=== PATIENT | male | born 1945 | race Caucasian/White ===

== ENCOUNTER 2016-07-06 16:29 | Emergency (ER) | payer MEDICARE, OTHER ==
[~2016-07-06] VITALS: Ht 177.8 cm; Wt 87.6 kg
[~2016-07-06 16:29] MED LIST: ASPI-496 PO; ASPI-621 PO; CEFTRIAXONE PMX IVPB; Cellcept IVPB; ENOX40SY4 SQ; HYDR2TAB13 PO; HYDR2VIA2 IV; METO25TA35 PO; MYCO250C PO; ONDA4TAB7 PO; ONDA4VIA4 IVP; PANT40TA3 PO; PANT40VI IVPush; TACR0.5C4 NG; TACR0.5C4 PO
[2016-07-06] MEDS ORDERED: SODIUM CHLORIDE 0.9% 1,000 ML IV ONE (16:58)
[2016-07-06] MEDS ORDERED: SODIUM CHLORIDE FLUSH 10ML SYR IVF ONE (17:00)
[2016-07-06 17:50] LABS: BLOOD UREA NITROGEN 16 mg/dL (7-18)
[2016-07-06 17:53] LABS: ASPARTATE AMINO TRANSFERASE 41 U/L (15-37)
[2016-07-06] MEDS ORDERED: OMNIPAQUE 350 MG/ML, 100ML BOTTLE ONE (20:15)
[2016-07-06 20:32] LABS: PATH.CAST-FLAG NOT PRESENT; SPERM-FLAG NOT PRESENT; SRC-FLAG NOT PRESENT; XTAL-FLAG NOT PRESENT; YLC-FLAG NOT PRESENT
[2016-07-06 21:33] VITALS: BP 142/77
== END 2016-07-06 21:35 | disposition home or self-care (01) ==
LOC: ED 21:22
DX: R10.84 Generalized abdominal pain (principal); I10 Essential (primary) hypertension; J45.909 Unspecified asthma, uncomplicated
CPT/HCPCS: 36415; 74022; 74177; 76700; 80053; 81001; 83690; 85025; 87086; 96360; 99285; J7030; Q9967

== ENCOUNTER 2017-01-22 12:32 | Inpatient (IN) | payer MEDICARE, OTHER ==
[~2017-01-22] VITALS: Ht 177.8 cm; Wt 82.6 kg
[~2017-01-22 12:32] MED LIST changes: -HYDR2TAB13 PO; +HYDR2TAB29 PO
[2017-01-22 13:34] LABS: HEMATOCRIT 35.6 % (39.2-51.8); HEMOGLOBIN 12.1 g/dL (13.7-18.0); WHITE BLOOD COUNT 4.3 x10^3/uL (3.4-10)
[2017-01-22 13:47] LABS: BLOOD UREA NITROGEN 24 mg/dL (7-18)
[2017-01-22 13:53] LABS: ASPARTATE AMINO TRANSFERASE 46 U/L (15-37)
[2017-01-22] MEDS ORDERED: hydrALAzine 20 MG/ML, 1ML IVPush PRN (17:30)
[2017-01-22] MEDS ORDERED: OXYcodone IR 5MG TABLET PO PRN (17:30)
[2017-01-22] MEDS ORDERED: ONDANSETRON 2MG/ML, 2ML IVPush PRN (17:30)
[2017-01-22] MEDS ORDERED: morphine SULFATE 10 MG/ML, 1ML IVPush PRN (17:30)
[2017-01-22] MEDS: METOPROLOL TARTRATE 25 MG TABLET PO SCH ×2 (18:00→22:33)
[2017-01-22] MEDS ORDERED: HEPARIN 5,000 UNITS/ML, 1ML ONE (20:14)
[2017-01-22] MEDS: TACROLIMUS 0.5 MG CAPSULE PO SCH (21:00)
[2017-01-22 21:55] VITALS: BP 151/82
[2017-01-22] MEDS: HEPARIN 5,000 UNITS/ML, 1ML SQ SCH (22:29)
[2017-01-23 02:00] VITALS: BP 120/70
[2017-01-23 05:31] LABS: HEMATOCRIT 30.8 % (39.2-51.8); HEMOGLOBIN 10.5 g/dL (13.7-18.0); WHITE BLOOD COUNT 3.2 x10^3/uL (3.4-10)
[2017-01-23 05:53] LABS: ASPARTATE AMINO TRANSFERASE 36 U/L (15-37); BLOOD UREA NITROGEN 25 mg/dL (7-18)
[2017-01-23] MEDS: METOPROLOL TARTRATE 25 MG TABLET PO SCH ×2 (06:13→17:36)
[2017-01-23] MEDS: HEPARIN 5,000 UNITS/ML, 1ML SQ SCH ×3 (06:14→20:56)
[2017-01-23] MEDS ORDERED: FUROSEMIDE 40 MG/4 ML IV ONE (07:00)
[2017-01-23 09:00] VITALS: BP 132/85
[2017-01-23] MEDS: PANTOPROZOLE 40MG TABLET PO SCH (09:18)
[2017-01-23] MEDS: TACROLIMUS 0.5 MG CAPSULE PO SCH ×2 (09:19→20:56)
[2017-01-23] MEDS: TACROLIMUS 1 MG CAPSULE PO SCH (09:21)
[2017-01-23 13:23] VITALS: BP 127/81
[2017-01-23] MEDS ORDERED: AMLO5TAB4 PO (15:39)
[2017-01-23] MEDS ORDERED: ASPI-515 PO (15:41)
[2017-01-23 19:56] VITALS: BP 123/65
[2017-01-24 01:56] VITALS: BP 135/78
[2017-01-24] MEDS: HEPARIN 5,000 UNITS/ML, 1ML SQ SCH ×3 (05:39→21:12)
[2017-01-24] MEDS: METOPROLOL TARTRATE 25 MG TABLET PO SCH ×2 (05:39→17:22)
[2017-01-24 07:00] VITALS: BP 139/79
[2017-01-24 07:34] LABS: HEMATOCRIT 32.6 % (39.2-51.8); WHITE BLOOD COUNT 3.1 x10^3/uL (3.4-10)
[2017-01-24 07:46] LABS: ASPARTATE AMINO TRANSFERASE 36 U/L (15-37); BLOOD UREA NITROGEN 25 mg/dL (7-18)
[2017-01-24] MEDS: TACROLIMUS 1 MG CAPSULE PO SCH (08:33)
[2017-01-24] MEDS: PANTOPROZOLE 40MG TABLET PO SCH (08:33)
[2017-01-24] MEDS: FUROSEMIDE 40 MG/4 ML IV SCH ×2 (12:02→21:12)
[2017-01-24] MEDS: POTASSIUM CHLORIDE 20 MEQ PACKET PO SCH ×3 (12:02→21:11)
[2017-01-24 12:45] VITALS: BP 133/82
[2017-01-24 20:50] VITALS: BP 130/86
[2017-01-24] MEDS: TACROLIMUS 0.5 MG CAPSULE PO SCH (21:12)
[2017-01-25 02:30] VITALS: BP 131/80
[2017-01-25 05:01] LABS: BLOOD UREA NITROGEN 26 mg/dL (7-18)
[2017-01-25] MEDS: HEPARIN 5,000 UNITS/ML, 1ML SQ SCH ×3 (05:39→21:33)
[2017-01-25] MEDS: METOPROLOL TARTRATE 25 MG TABLET PO SCH ×2 (05:39→17:05)
[2017-01-25 06:56] VITALS: BP 142/86
[2017-01-25] MEDS: POTASSIUM CHLORIDE 20 MEQ PACKET PO SCH ×3 (08:32→21:33)
[2017-01-25] MEDS: FUROSEMIDE 40 MG/4 ML IV SCH ×2 (08:32→21:33)
[2017-01-25] MEDS: POLYETHYLENE GLYCOL 17 GM PACKET PO SCH (08:32)
[2017-01-25] MEDS: TACROLIMUS 1 MG CAPSULE PO SCH (08:32)
[2017-01-25] MEDS: PANTOPROZOLE 40MG TABLET PO SCH (08:32)
[2017-01-25 09:07] LABS: CREATININE URINE 117.5 mg/dL (Not Estab.)
[2017-01-25 13:58] VITALS: BP 125/83
[2017-01-25 19:50] VITALS: BP 136/84
[2017-01-25] MEDS: TACROLIMUS 0.5 MG CAPSULE PO SCH (21:32)
[2017-01-26 02:35] VITALS: BP 124/76
[2017-01-26 05:30] LABS: HEMATOCRIT 33.4 % (39.2-51.8); HEMOGLOBIN 11.3 g/dL (13.7-18.0); WHITE BLOOD COUNT 3.8 x10^3/uL (3.4-10)
[2017-01-26 05:44] LABS: ASPARTATE AMINO TRANSFERASE 35 U/L (15-37); BLOOD UREA NITROGEN 28 mg/dL (7-18)
[2017-01-26] MEDS: HEPARIN 5,000 UNITS/ML, 1ML SQ SCH ×3 (05:52→21:18)
[2017-01-26] MEDS: METOPROLOL TARTRATE 25 MG TABLET PO SCH ×2 (05:59→16:53)
[2017-01-26 06:07] LABS: FREE KAPPA LT CHAINS SERUM 50.8 mg/L (3.3-19.4); FREE LAMBDA LT CHAINS SERUM 28.8 mg/L (5.7-26.3); KAPPA/LAMBDA RATIO SERUM 1.76 (0.26-1.65)
[2017-01-26 07:25] VITALS: BP 106/73
[2017-01-26] MEDS: POLYETHYLENE GLYCOL 17 GM PACKET PO SCH (07:40)
[2017-01-26] MEDS: TACROLIMUS 1 MG CAPSULE PO SCH (07:40)
[2017-01-26] MEDS: POTASSIUM CHLORIDE 20 MEQ PACKET PO SCH ×3 (07:40→21:18)
[2017-01-26] MEDS: PANTOPROZOLE 40MG TABLET PO SCH (07:41)
[2017-01-26] MEDS ORDERED: FLUMAZENIL 0.1 MG/1 ML, 5ML ONE (08:05)
[2017-01-26] MEDS ORDERED: NALOXONE 1 MG/ML, 2ML ONE (08:05)
[2017-01-26] MEDS ORDERED: FENTANYL PF 100 MCG/2ML ONE ×2 (08:05→09:26)
[2017-01-26] MEDS ORDERED: MIDAZOLAM 1 MG/ML, 5ML ONE (08:05)
[2017-01-26] MEDS: FUROSEMIDE 40 MG/4 ML IV SCH ×2 (08:32→21:18)
[2017-01-26 09:22] VITALS: BP 126/82
[2017-01-26 13:20] VITALS: BP 115/78
[2017-01-26 20:51] VITALS: BP 113/74
[2017-01-26] MEDS: TACROLIMUS 0.5 MG CAPSULE PO SCH (21:18)
[2017-01-27 01:13] VITALS: BP 122/80
[2017-01-27] MEDS: HEPARIN 5,000 UNITS/ML, 1ML SQ SCH ×3 (05:24→21:00)
[2017-01-27] MEDS: METOPROLOL TARTRATE 25 MG TABLET PO SCH ×2 (05:24→16:59)
[2017-01-27 05:35] LABS: HEMATOCRIT 36.7 % (39.2-51.8); HEMOGLOBIN 12.3 g/dL (13.7-18.0); WHITE BLOOD COUNT 4.2 x10^3/uL (3.4-10)
[2017-01-27 05:57] LABS: ASPARTATE AMINO TRANSFERASE 39 U/L (15-37); BLOOD UREA NITROGEN 26 mg/dL (7-18)
[2017-01-27] MEDS: FUROSEMIDE 40 MG TABLET PO SCH ×3 (07:30→16:59)
[2017-01-27 08:30] VITALS: BP 126/90
[2017-01-27] MEDS: FUROSEMIDE 40 MG/4 ML IV SCH (09:00)
[2017-01-27] MEDS: POLYETHYLENE GLYCOL 17 GM PACKET PO SCH ×2 (09:00→09:27)
[2017-01-27] MEDS: TACROLIMUS 1 MG CAPSULE PO SCH (09:00)
[2017-01-27] MEDS: TACROLIMUS 0.5 MG CAPSULE PO SCH (09:27)
[2017-01-27] MEDS: PANTOPROZOLE 40MG TABLET PO SCH (09:27)
[2017-01-27] MEDS: POTASSIUM CHLORIDE 20 MEQ PACKET PO SCH ×3 (09:27→22:29)
[2017-01-27 14:30] VITALS: BP 128/84
[2017-01-27 20:00] VITALS: BP 118/83
[2017-01-28 02:20] VITALS: BP 128/64
[2017-01-28] MEDS: HEPARIN 5,000 UNITS/ML, 1ML SQ SCH ×2 (06:08→13:00)
[2017-01-28] MEDS: METOPROLOL TARTRATE 25 MG TABLET PO SCH (06:08)
[2017-01-28 06:21] LABS: BLOOD UREA NITROGEN 30 mg/dL (7-18)
[2017-01-28] MEDS: POTASSIUM CHLORIDE 20 MEQ PACKET PO SCH (08:56)
[2017-01-28] MEDS: TACROLIMUS 1 MG CAPSULE PO SCH (08:56)
[2017-01-28] MEDS: PANTOPROZOLE 40MG TABLET PO SCH (08:56)
[2017-01-28] MEDS: FUROSEMIDE 40 MG TABLET PO SCH (08:56)
[2017-01-28] MEDS: POLYETHYLENE GLYCOL 17 GM PACKET PO SCH (08:57)
[2017-01-28 10:00] VITALS: BP 123/81
[2017-01-28] MEDS ORDERED: TACR0.5C4 PO (14:35)
[2017-01-28] MEDS ORDERED: FURO40TA6 PO (14:35)
[2017-01-28] MEDS ORDERED: METO25TA35 PO (14:35)
[2017-01-28] MEDS ORDERED: MYCO500T3 PO (14:35)
[2017-01-28] MEDS ORDERED: POTA20PA25 PO (14:35)
[2017-01-28] MEDS ORDERED: TACR1CAP4 PO (14:35)
== END 2017-01-28 17:00 | disposition home or self-care (01) | DRG 682 ==
LOC: ED 16:46 → SUATTDRO 17:00 → EDIP 17:15 → 4EST 20:48
PROVIDERS: ADMIT Internal Medicine; ATTEND Internal Medicine
PROC: 0TB13ZX Excision of Left Kidney, Percutaneous Approach, Diagnostic (ICD-10-PCS; principal; 2017-01-26)
DX: N17.0 Acute kidney failure with tubular necrosis (principal); E43 Unspecified severe protein-calorie malnutrition; I50.31 Acute diastolic (congestive) heart failure; Z94.4 Liver transplant status; I13.0 Hypertensive heart and chronic kidney disease with heart failure and stage 1 through stage 4 chronic kidney disease, or unspecified chronic kidney disease; Z94.0 Kidney transplant status; B18.2 Chronic viral hepatitis C; D64.9 Anemia, unspecified; I08.1 Rheumatic disorders of both mitral and tricuspid valves; I77.819 Aortic ectasia, unspecified site; K59.00 Constipation, unspecified; N18.9 Chronic kidney disease, unspecified; J45.909 Unspecified asthma, uncomplicated; Z79.899 Other long term (current) drug therapy; Z87.891 Personal history of nicotine dependence; Z68.26 Body mass index [BMI] 26.0-26.9, adult; Z88.2 Allergy status to sulfonamides
CPT/HCPCS: 36415; 50200; 71010; 71250; 76776; 77012; 80048; 80053; 80197; 81001; 82043; 82306; 82570; 82784; 83036; 83690; 83735; 83880; 83883; 84100; 84155; 84156; 84165; 84550; 85025; 85610; 86334; 88300; 93005; 93306; 99156; 99157; 99285; J1644; J1940; J2250; J3010; J7507; J2310; J7517

== ENCOUNTER → 2017-03-26 | Outpatient (CLI) | payer MEDICARE ==
[~2017-03-26] MED LIST changes: +AMLO5TAB4 PO; +ASPI-515 PO; +FURO40TA6 PO; +MYCO500T3 PO; +POTA20PA25 PO; +REGADENOSON 0.4 MG/5 ML SYRINGE ONE; +TACR1CAP4 PO
== END | disposition home or self-care (01) ==
LOC: RAD 08:35
PROVIDERS: ATTEND Internal Medicine Cardiovascular Disease
DX: I10 Essential (primary) hypertension (principal); R00.0 Tachycardia, unspecified; I48.92 Unspecified atrial flutter
CPT/HCPCS: 78452; 93017; A9502; J2785

== ENCOUNTER → 2017-07-03 | Outpatient (CLI) | payer MEDICARE ==
[~2017-07-03] MED LIST changes: -REGADENOSON 0.4 MG/5 ML SYRINGE ONE
== END | disposition home or self-care (01) ==
LOC: CFH 08:55
PROVIDERS: ATTEND Family Medicine
DX: R16.1 Splenomegaly, not elsewhere classified (principal); Z94.4 Liver transplant status; Z90.49 Acquired absence of other specified parts of digestive tract
CPT/HCPCS: 76700

== ENCOUNTER 2018-03-01 11:35 | Observation (INO) | payer MEDICARE ==
[~2018-03-01] VITALS: Ht 177.8 cm; Wt 78.8 kg
[~2018-03-01 11:35] MED LIST changes: -ASPI-621 PO; +ASPI81TA45 PO; -ONDA4VIA4 IVP; +ONDA4VIA8 IVP
--- NOTE | 2018-03-01 11:55 | NUR ---
FIRST CONTACT WITH PATIENT, REPORTS NAUSEA AND BLOOD IN STOOL LAST WED AND TODAY. LAB AT BEDSIDE, SKIN PALE, WARM, DRY, NADN, DENIES ABD PAIN. CALL LIGHT WITHIN REACH, FAMILY AT BEDSIDE.
[2018-03-01] MEDS ORDERED: SODIUM CHLORIDE 0.9% 1,000ML IVBOLUS ONE (12:00)
[2018-03-01] MEDS ORDERED: SODIUM CHLORIDE FLUSH 10ML SYR IVF ONE (12:00)
--- NOTE | 2018-03-01 12:11 | NUR ---
FURNITURE PACKER ON PATIENT, LABS COMPLETED, IV ESTABLISHED, MEDICATIONS ADMINISTERED, NO NEEDS AT THIS TIME, MD AT BEDSIDE. AWAITING CT, NO ADDITIONAL NEEDS AT THIS TIME.
[2018-03-01] MEDS ORDERED: PANT40TA5 PO (12:20)
[2018-03-01] MEDS ORDERED: ASPI-515 PO (12:20)
[2018-03-01] MEDS ORDERED: METO25TA35 PO (12:21)
[2018-03-01] MEDS ORDERED: HYDR-3342 PO (12:22)
[2018-03-01] MEDS ORDERED: LISI2.5T PO (12:22)
[2018-03-01] MEDS ORDERED: WARF-36 PO (12:23)
[2018-03-01 12:24] LABS: MEAN CORPUSCULAR HEMOGLOBIN 27.2 pg (27.5-34.5); MEAN CORPUSCULAR HGB CONC 32.8 g/dL (33.2-36.2); MEAN CORPUSCULAR VOLUME 82.8 fL (81-97); MEAN PLATELET VOLUME 9.3 fL (7.4-10.4); PLATELET COUNT 144 x10^3/uL (130-400); RED BLOOD COUNT 3.72 x10^6/uL (4.38-5.82); RED CELL DISTRIBUTION WIDTH 22.3 % (9.4-14.8)
[2018-03-01] MEDS ORDERED: FLUT1AER IH (12:24)
[2018-03-01] MEDS ORDERED: ALBU18HF IH (12:24)
[2018-03-01 12:25] LABS: INTERNATIONAL NORMALIZED RATIO 2.28 (0.93-1.1); PROTHROMBIN TIME 23.4 Seconds (9.6-11.5)
[2018-03-01 12:26] LABS: ALBUMIN 3.2 g/dL (3.4-5.0); ANION GAP 5 mmol/L (5-15); CALCIUM 8.1 mg/dL (8.5-10.1); CHLORIDE 116 mmol/L (98-107); CREATININE 1.62 mg/dL (0.7-1.3)
[2018-03-01 12:40] LABS: <PLATELET ESTIMATE> ADEQUATE; <PLT MORPHOLOGY> NORMAL PLT MORPH; ANISOCYTOSIS 1+; BASOPHILS # (AUTO) 0.03 x10^3/uL (0-0.1); BASOPHILS % (AUTO) 1 % (0-1); EOSINOPHILS # (AUTO) 0.11 x10^3/uL (0-0.4); EOSINOPHILS % (AUTO) 3 % (1-7); LYMPHOCYTES # (AUTO) 0.67 x10^3/uL (1-3.4); LYMPHOCYTES % (AUTO) 17 % (22-44); MD MORPH REVIEW ONLY; MONOCYTES # (AUTO) 0.46 x10^3/uL (0.2-0.8); MONOCYTES % (AUTO) 12 % (2-9); NEUTROPHILS # (AUTO) 2.63 x10^3/uL (1.8-6.8); NEUTROPHILS % (AUTO) 67 % (42-75); OVALOCYTES 1+
[2018-03-01 12:41] LABS: MICROCYTOSIS 1+
--- NOTE | 2018-03-01 12:49 | NUR ---
PATIENT TO CT VIA [id number].
[2018-03-01] MEDS ORDERED: OMNIPAQUE 350 MG/ML, 100ML BOTTLE ONE (13:12)
--- NOTE | 2018-03-01 13:59 | NUR ---
PATIENT AMB TO BATHROOM WITH STEADY GAIT, PATIENT BACK TO BED, NADN. AWAITING BLOOD BANK TO CALL REGARDING [facility] TO BE READY.
--- NOTE | 2018-03-01 14:04 | NUR ---
[facility] READY PER BLOOD BANK, BLOOD CONSENT FORM SIGNED AND IN CHART, PURPLE SLIP SENT TO LAB.
[2018-03-01 14:16] VITALS: BP 143/108
--- NOTE | 2018-03-01 14:21 | NUR ---
[facility] STARTED, PATIENT EDUCATED REGARDING ALLERGIC REACTIONS. NADN AT THIS TIME.
[2018-03-01 14:35] VITALS: BP 152/111
--- NOTE | 2018-03-01 14:53 | NUR ---
REPORT TO YEYO WU.
--- NOTE | 2018-03-01 14:58 | NUR ---
[facility] COMPLETED, NO REACTION. PATIENT A+OX4. AWAITING TRANSPORT TO ROOM 441 UPSTAIRS.
[2018-03-01 14:59] VITALS: BP 147/110
[2018-03-01] MEDS ORDERED: TEMPLATE NON-FORMULARY MED. (Albuterol Sulfate (Ventolin Hfa) 0 PUFF(S)) IH PRN (15:00)
--- NOTE | 2018-03-01 15:01 | NUR ---
[facility] AT BEDSIDE.
--- NOTE | 2018-03-01 15:26 | NUR ---
PATIENT ADMITTED TO HOSPITAL BED UPSTAIRS.
[2018-03-01] MEDS ORDERED: POLYETHYLENE GLYCOL 17 GM PACKET PO PRN (15:30)
[2018-03-01] MEDS ORDERED: ONDANSETRON 2MG/ML, 2ML IVPush PRN (15:30)
[2018-03-01] MEDS ORDERED: ONDANSETRON ODT 4 MG PO PRN (15:30)
[2018-03-01] MEDS ORDERED: DOCUSATE 100 MG CAPSULE PO PRN (15:30)
[2018-03-01 15:40] VITALS: BP 130/81
[2018-03-01 20:11] VITALS: BP 152/90
[2018-03-01] MEDS: TACROLIMUS 0.5 MG CAPSULE PO SCH (20:19)
[2018-03-01] MEDS: METOPROLOL TARTRATE 25 MG TABLET PO SCH (20:19)
[2018-03-02 02:14] VITALS: BP 139/87
[2018-03-02 05:46] LABS: MEAN CORPUSCULAR HEMOGLOBIN 26.4 pg (27.5-34.5); MEAN CORPUSCULAR HGB CONC 32.1 g/dL (33.2-36.2); MEAN CORPUSCULAR VOLUME 82.1 fL (81-97); MEAN PLATELET VOLUME 9.2 fL (7.4-10.4); PLATELET COUNT 110 x10^3/uL (130-400); RED BLOOD COUNT 3.23 x10^6/uL (4.38-5.82); RED CELL DISTRIBUTION WIDTH 22.6 % (9.4-14.8)
[2018-03-02 05:50] LABS: INTERNATIONAL NORMALIZED RATIO 2.14 (0.93-1.1)
[2018-03-02 05:52] LABS: ANION GAP 7 mmol/L (5-15); CALCIUM 8.2 mg/dL (8.5-10.1); CHLORIDE 118 mmol/L (98-107); CREATININE 1.35 mg/dL (0.7-1.3)
[2018-03-02 06:22] LABS: MD MORPH REVIEW ONLY
[2018-03-02 06:23] LABS: BASOPHILS # (AUTO) 0.02 x10^3/uL (0-0.1); BASOPHILS % (AUTO) 1 % (0-1); EOSINOPHILS # (AUTO) 0.11 x10^3/uL (0-0.4); EOSINOPHILS % (AUTO) 4 % (1-7); LYMPHOCYTES # (AUTO) 0.55 x10^3/uL (1-3.4); LYMPHOCYTES % (AUTO) 21 % (22-44); MONOCYTES # (AUTO) 0.35 x10^3/uL (0.2-0.8); MONOCYTES % (AUTO) 13 % (2-9); NEUTROPHILS # (AUTO) 1.64 x10^3/uL (1.8-6.8); NEUTROPHILS % (AUTO) 61 % (42-75)
[2018-03-02 06:26] LABS: ANISOCYTOSIS 2+
[2018-03-02 06:27] LABS: MICROCYTOSIS 1+; OVALOCYTES 2+
[2018-03-02 06:29] LABS: POLYCHROMASIA 1+
[2018-03-02 06:30] LABS: <PLATELET ESTIMATE> DECREASED; <PLT MORPHOLOGY> NORMAL PLT MORPH; SCHISTOCYTES 1+
[2018-03-02 07:45] VITALS: BP 156/86
[2018-03-02] MEDS: PANTOPROZOLE 40MG TABLET PO SCH (08:56)
[2018-03-02] MEDS: TACROLIMUS 1 MG CAPSULE PO SCH (08:56)
[2018-03-02] MEDS: METOPROLOL TARTRATE 25 MG TABLET PO SCH ×2 (08:56→21:21)
[2018-03-02] MEDS: LISINOPRIL 10 MG TABLET PO SCH (08:57)
[2018-03-02] MEDS: FLUTICASONE/VILANTEROL 100-25MCG/INH INH SCH (08:59)
[2018-03-02] MEDS ORDERED: IRON DEXTRAN COMPLEX IV ONE (11:00)
[2018-03-02] MEDS ORDERED: IRON DEXTRAN COMPLEX 25 MG in SODIUM CHLORIDE 0.9% 50 ML IV ONE (11:00)
[2018-03-02] MEDS ORDERED: SODIUM CHLORIDE 0.9% IV ONE (11:00)
[2018-03-02] MEDS: IRON SUCROSE COMPLEX 100MG/5ML IV SCH (12:26)
[2018-03-02 15:25] VITALS: BP 125/76
[2018-03-02 19:20] VITALS: BP 124/79
[2018-03-02 21:20] VITALS: BP 125/81
[2018-03-02] MEDS: TACROLIMUS 0.5 MG CAPSULE PO SCH (21:21)
[2018-03-03 02:30] VITALS: BP 125/85
[2018-03-03 05:41] LABS: MEAN CORPUSCULAR HEMOGLOBIN 27.2 pg (27.5-34.5); MEAN CORPUSCULAR HGB CONC 32.9 g/dL (33.2-36.2); MEAN CORPUSCULAR VOLUME 82.8 fL (81-97); MEAN PLATELET VOLUME 9.7 fL (7.4-10.4); PLATELET COUNT 103 x10^3/uL (130-400); RED BLOOD COUNT 3.27 x10^6/uL (4.38-5.82); RED CELL DISTRIBUTION WIDTH 22.6 % (9.4-14.8)
[2018-03-03 05:46] LABS: ANION GAP 8 mmol/L (5-15); CALCIUM 7.8 mg/dL (8.5-10.1); CHLORIDE 115 mmol/L (98-107)
[2018-03-03 05:47] LABS: CREATININE 1.47 mg/dL (0.7-1.3)
[2018-03-03 06:21] LABS: ANISOCYTOSIS 1+; BASOPHILS # (AUTO) 0.01 x10^3/uL (0-0.1); BASOPHILS % (AUTO) 1 % (0-1); EOSINOPHILS % (AUTO) 4 % (1-7); LYMPHOCYTES # (AUTO) 0.47 x10^3/uL (1-3.4); LYMPHOCYTES % (AUTO) 17 % (22-44); MD MORPH REVIEW ONLY; MONOCYTES # (AUTO) 0.35 x10^3/uL (0.2-0.8); MONOCYTES % (AUTO) 12 % (2-9); NEUTROPHILS # (AUTO) 1.85 x10^3/uL (1.8-6.8); NEUTROPHILS % (AUTO) 67 % (42-75)
[2018-03-03 06:22] LABS: <PLATELET ESTIMATE> DECREASED; <PLT MORPHOLOGY> NORMAL PLT MORPH; OVALOCYTES 1+; POLYCHROMASIA 1+
[2018-03-03 07:01] VITALS: BP 144/82
[2018-03-03] MEDS: PANTOPROZOLE 40MG TABLET PO SCH (08:28)
[2018-03-03] MEDS: LISINOPRIL 10 MG TABLET PO SCH (08:28)
[2018-03-03] MEDS: METOPROLOL TARTRATE 25 MG TABLET PO SCH (08:28)
[2018-03-03] MEDS: FLUTICASONE/VILANTEROL 100-25MCG/INH INH SCH (08:29)
[2018-03-03] MEDS: TACROLIMUS 1 MG CAPSULE PO SCH (08:29)
[2018-03-03] MEDS: IRON SUCROSE COMPLEX 100MG/5ML IV SCH (11:12)
== END 2018-03-03 13:17 | disposition home or self-care (01) ==
LOC: ED 12:47 → EDIP 13:41 → INTOOBSV 13:41 → 4NOR 15:30
PROVIDERS: ADMIT Hospitalist; ATTEND Hospitalist
DX: K92.1 Melena (principal); D50.0 Iron deficiency anemia secondary to blood loss (chronic); I13.0 Hypertensive heart and chronic kidney disease with heart failure and stage 1 through stage 4 chronic kidney disease, or unspecified chronic kidney disease; I48.91 Unspecified atrial fibrillation; I50.9 Heart failure, unspecified; I85.00 Esophageal varices without bleeding; J98.4 Other disorders of lung; K42.9 Umbilical hernia without obstruction or gangrene; K64.8 Other hemorrhoids; K74.60 Unspecified cirrhosis of liver; N18.3 Chronic kidney disease, stage 3 (moderate); Z79.01 Long term (current) use of anticoagulants; Z94.0 Kidney transplant status; Z94.4 Liver transplant status
CPT/HCPCS: 36415; 74174; 80048; 82040; 85014; 85018; 85025; 85610; 85730; 86850; 86900; 93005; 96374; 96376; 99284; G0378; J1756; J7030; J7507; J7517; P9017; Q9967

== ENCOUNTER 2018-06-05 21:09 | Emergency (ER) | payer MEDICARE ==
[~2018-06-05] VITALS: Ht 177.8 cm; Wt 82.2 kg
[~2018-06-05 21:09] MED LIST changes: +ALBU18HF IH; +FLUT1AER IH; +HYDR-3342 PO; +LISI2.5T PO; +ONDA4VIA60 IVP; -ONDA4VIA8 IVP; +PANT40TA5 PO; +WARF-36 PO
[2018-06-05 21:17] VITALS: BP 165/90
--- NOTE | 2018-06-05 21:29 | NUR ---
THIS IS A 73 Y/O MALE ARRIVING TO ED WITH C/O OF RASH TO VENOUS DRAW SITE FOR COUMADIN LEVEL. PTS IS CONCERNED OF POSSIBLE HEMATOMA OR INFECTION SINCE PT IS IMMUNOCOMPROMISED AT THIS TIME. PT IS LIVER AND KIDNEYS RECIPIENT. PT ON ARRIVAL CONNECTED TO ALL MONITORS AND CALL LIGHT IN REACH.
--- NOTE | 2018-06-05 21:50 | NUR ---
Patient/Caregiver given discharge instructions and they have confirmed that they understand the instructions. Patient ambulatory with steady gait.
== END 2018-06-05 21:52 | disposition home or self-care (01) ==
LOC: ED 21:46
DX: T78.40XA Allergy, unspecified, initial encounter (principal); I48.91 Unspecified atrial fibrillation; I11.0 Hypertensive heart disease with heart failure; I50.9 Heart failure, unspecified; Z86.19 Personal history of other infectious and parasitic diseases; Z94.0 Kidney transplant status; Z94.4 Liver transplant status
CPT/HCPCS: 99281

== ENCOUNTER → 2019-03-06 | Outpatient (CLI) | payer MEDICARE ==
[~2019-03-06] VITALS: Ht 177.8 cm; Wt 77.3 kg
[~2019-03-06] MED LIST changes: +ALBU18HF INH; +ASCO10004 PO; +CHOL400T10 PO; +DOCU-180 PO; +IRON PO; +URSODIOL PO
[2019-03-06 15:53] LABS: BASOPHILS # (AUTO) 0.03 x10^3/uL (0-0.1); BASOPHILS % (AUTO) 1 % (0-1); EOSINOPHILS # (AUTO) 0.27 x10^3/uL (0-0.4); EOSINOPHILS % (AUTO) 6 % (1-7); LYMPHOCYTES # (AUTO) 0.93 x10^3/uL (1-3.4); LYMPHOCYTES % (AUTO) 21 % (22-44); MD NO; MEAN CORPUSCULAR HEMOGLOBIN 29.2 pg (27.5-34.5); MEAN CORPUSCULAR HGB CONC 32.4 g/dL (33.2-36.2); MEAN CORPUSCULAR VOLUME 89.9 fL (81-97); MEAN PLATELET VOLUME 8.8 fL (7.4-10.4); MONOCYTES % (AUTO) 11 % (2-9); NEUTROPHILS # (AUTO) 2.79 x10^3/uL (1.8-6.8); NEUTROPHILS % (AUTO) 62 % (42-75); PLATELET COUNT 173 x10^3/uL (130-400); RED BLOOD COUNT 3.59 x10^6/uL (4.38-5.82)
[2019-03-06 16:03] LABS: ANION GAP 6 mmol/L (5-15); CALCIUM 8.3 mg/dL (8.5-10.1); CHLORIDE 116 mmol/L (98-107); CREATININE 1.78 mg/dL (0.7-1.3)
[2019-03-06 16:05] LABS: INTERNATIONAL NORMALIZED RATIO 2.63 (0.93-1.1); PROTHROMBIN TIME 28.1 Seconds (9.6-11.5)
== END | disposition home or self-care (01) ==
LOC: STAR 14:51
PROVIDERS: ATTEND Internal Medicine Cardiovascular Disease
DX: Z01.811 Encounter for preprocedural respiratory examination (principal); J92.9 Pleural plaque without asbestos
CPT/HCPCS: 36415; 71046; 80048; 85025; 85610; 85730

== ENCOUNTER 2019-03-10 06:23 | Day surgery (SDC) | payer MEDICARE ==
[~2019-03-10] VITALS: Ht 177.8 cm; Wt 77.3 kg
[2019-03-10] MEDS ORDERED: SODIUM CHLORIDE 0.9% 1,000 ML IV SCH (06:33)
[2019-03-10 06:47] VITALS: BP 139/92
[2019-03-10] MEDS ORDERED: MIDAZOLAM 1 MG/ML, 5ML ONE (07:44)
[2019-03-10] MEDS ORDERED: LIDOCAINE 1%, 20ML ONE (07:44)
[2019-03-10] MEDS ORDERED: FENTANYL PF 250 MCG/5ML ONE (07:44)
[2019-03-10] MEDS ORDERED: TEMPLATE NON-FORMULARY MED. (Albuterol Sulfate (Ventolin Hfa) 1 PUFF) INH PRN (09:30)
[2019-03-10] MEDS ORDERED: TACROLIMUS 1 MG CAPSULE PO SCH (09:30)
[2019-03-10] MEDS ORDERED: DOCUSATE 100 MG CAPSULE PO SCH (09:30)
[2019-03-10 09:31] LABS: INTERNATIONAL NORMALIZED RATIO 2.58 (0.93-1.1); PROTHROMBIN TIME 27.6 Seconds (9.6-11.5)
[2019-03-10] MEDS ORDERED: IRON 325 MG PO SCH (10:00)
[2019-03-10] MEDS ORDERED: TEMPLATE NON-FORMULARY MED. (Ascorbic Acid** (Vitamin C**) 1,000 MG) PO SCH (10:00)
[2019-03-10] MEDS ORDERED: CHOLECALCIFEROL 400 UNITS TABLET PO SCH (10:00)
[2019-03-10] MEDS ORDERED: WARFARIN 5 MG TABLET PO-COUM SCH (18:00)
[2019-03-10] MEDS ORDERED: METOPROLOL TARTRATE 25 MG TABLET PO SCH (21:00)
[2019-03-10] MEDS ORDERED: LISINOPRIL 10 MG PO SCH (21:00)
[2019-03-10] MEDS ORDERED: URSODIOL 600 MG PO SCH (21:00)
[2019-03-10] MEDS ORDERED: TACROLIMUS 0.5 MG CAPSULE PO SCH (21:00)
[2019-03-11] MEDS ORDERED: PANTOPROZOLE 40MG TABLET PO SCH (09:00)
[2019-03-12] MEDS ORDERED: ASPIRIN 81 MG TABLET EC PO SCH (09:00)
== END 2019-03-10 14:15 | disposition home or self-care (01) ==
LOC: CACL 06:23
PROVIDERS: ATTEND Internal Medicine Cardiovascular Disease
DX: I48.92 Unspecified atrial flutter (principal); I10 Essential (primary) hypertension; Z87.891 Personal history of nicotine dependence; Z88.2 Allergy status to sulfonamides; Z88.8 Allergy status to other drugs, medicaments and biological substances; Z94.0 Kidney transplant status
CPT/HCPCS: 36415; 85610; 93613; 93621; 93653; 99156; 99157; C1730; C1732; C1894; J2250; J3010

== ENCOUNTER 2019-04-08 11:27 | Emergency (ER) | payer MEDICARE ==
[~2019-04-08] VITALS: Ht 177.8 cm; Wt 77.9 kg
[~2019-04-08 11:27] MED LIST changes: +METO50TA6 PO; +TACR1CAP2 PO; +URSO300C12 PO
[2019-04-08] MEDS ORDERED: SODIUM CHLORIDE FLUSH 10ML SYR IVF ONE (12:00)
[2019-04-08 12:15] LABS: BASOPHILS # (AUTO) 0.04 x10^3/uL (0-0.1); BASOPHILS % (AUTO) 1 % (0-1); EOSINOPHILS # (AUTO) 0.28 x10^3/uL (0-0.4); EOSINOPHILS % (AUTO) 5 % (1-7); LYMPHOCYTES # (AUTO) 0.74 x10^3/uL (1-3.4); LYMPHOCYTES % (AUTO) 13 % (22-44); MD NO; MEAN CORPUSCULAR HGB CONC 32.4 g/dL (33.2-36.2); MEAN CORPUSCULAR VOLUME 89.5 fL (81-97); MEAN PLATELET VOLUME 8.8 fL (7.4-10.4); MONOCYTES # (AUTO) 0.52 x10^3/uL (0.2-0.8); MONOCYTES % (AUTO) 9 % (2-9); NEUTROPHILS # (AUTO) 4.21 x10^3/uL (1.8-6.8); NEUTROPHILS % (AUTO) 73 % (42-75); PLATELET COUNT 187 x10^3/uL (130-400); RED BLOOD COUNT 3.26 x10^6/uL (4.38-5.82); RED CELL DISTRIBUTION WIDTH 15.1 % (9.4-14.8)
[2019-04-08 12:24] LABS: ALBUMIN 3.2 g/dL (3.4-5.0); ANION GAP 8 mmol/L (5-15); CALCIUM 8.5 mg/dL (8.5-10.1); CHLORIDE 117 mmol/L (98-107)
[2019-04-08 12:47] LABS: INTERNATIONAL NORMALIZED RATIO 3.2 (0.93-1.1); PROTHROMBIN TIME 34.3 Seconds (9.6-11.5)
[2019-04-08 12:52] LABS: ALANINE AMINOTRANSFERASE 28 U/L (12-78); ALKALINE PHOSPHATASE 238 U/L (45-117); BILIRUBIN,TOTAL 0.5 mg/dL (0.2-1.0); CREATININE 1.59 mg/dL (0.7-1.3); TOTAL PROTEIN 6.8 g/dL (6.4-8.2)
--- NOTE | 2019-04-08 13:18 | NUR ---
TESTING REVIEW: POC CLARIFIED WITH PROVIDER (ABNORMAL INR-IS ON COUMADIN) pATIENT ALSO WORRIED ABOUT COUGH/KNOWN ARYTHMIA-PROVIDER TO CONSIDER TESTING WILL CONTINUE TO CLOSELY MONITOR
[2019-04-08 14:30] VITALS: BP 183/77
--- NOTE | 2019-04-08 14:40 | NUR ---
Importance of immediate f/u with preschool aide (>INR + on Doxy)
== END 2019-04-08 14:58 | disposition home or self-care (01) ==
LOC: ED 14:50
DX: K92.2 Gastrointestinal hemorrhage, unspecified (principal); J18.1 Lobar pneumonia, unspecified organism; I11.0 Hypertensive heart disease with heart failure; I50.9 Heart failure, unspecified; I48.91 Unspecified atrial fibrillation
CPT/HCPCS: 36415; 71045; 80053; 85025; 85610; 85730; 93005; 99285

== ENCOUNTER 2019-09-22 10:56 | Inpatient (IN) | payer MEDICARE ==
[~2019-09-22] VITALS: Ht 177.8 cm; Wt 80.5 kg
[~2019-09-22 10:56] MED LIST changes: +FERR-46 PO; +HYDR-3343 PO; +LISI-167 PO; +NEBI2.5T2 PO; +SODI650T PO; -TACR1CAP4 PO; +TACR1CAP5 PO
--- NOTE | 2019-09-22 11:10 | NUR ---
PT A&OX4, RESP EVEN & UNLABORED, SPEECH CLEAR. HX PER SPOUSE: DECREASED APPETITE, DECREASED URINE OUTPUT, UNINTENTIONAL WEIGHT LOSS, DISTENDED ABD, LOWER LIP SWOLLEN, PEDAL EDEMA, INTERMITTENT NAUSEA, DIARRHEA (IS TAKING STOOL SOFTENER & MIRALAX). HAD LABS DRAWN AT [facility] THIS MORNING FOR PENDING DOCTOR APPT. LAST BM: THIS MORNING.
[2019-09-22 11:55] LABS: BASOPHILS # (AUTO) 0.03 x10^3/uL (0-0.1); BASOPHILS % (AUTO) 1 % (0-1); EOSINOPHILS # (AUTO) 0.09 x10^3/uL (0-0.4); EOSINOPHILS % (AUTO) 2 % (1-7); LYMPHOCYTES # (AUTO) 0.38 x10^3/uL (1-3.4); LYMPHOCYTES % (AUTO) 9 % (22-44); MD NO; MEAN CORPUSCULAR HEMOGLOBIN 28.7 pg (27.5-34.5); MEAN CORPUSCULAR VOLUME 89.9 fL (81-97); MEAN PLATELET VOLUME 9.1 fL (7.4-10.4); MONOCYTES # (AUTO) 0.42 x10^3/uL (0.2-0.8); MONOCYTES % (AUTO) 11 % (2-9); NEUTROPHILS # (AUTO) 3.11 x10^3/uL (1.8-6.8); NEUTROPHILS % (AUTO) 77 % (42-75); PLATELET COUNT 136 x10^3/uL (130-400); RED BLOOD COUNT 3.37 x10^6/uL (4.38-5.82)
[2019-09-22 12:06] LABS: ALBUMIN 3.1 g/dL (3.4-5.0); ANION GAP 7 mmol/L (5-15); CALCIUM 8.3 mg/dL (8.5-10.1); CHLORIDE 116 mmol/L (98-107)
[2019-09-22 12:12] LABS: ALANINE AMINOTRANSFERASE 39 U/L (12-78); ALKALINE PHOSPHATASE 223 U/L (45-117); BILIRUBIN,TOTAL 0.8 mg/dL (0.2-1.0); CREATININE 1.58 mg/dL (0.7-1.3); TOTAL PROTEIN 6.5 g/dL (6.4-8.2)
[2019-09-22] MEDS ORDERED: URSO300C27 PO (15:27)
[2019-09-22] MEDS ORDERED: MYCO250C4 PO (15:27)
--- NOTE | 2019-09-22 15:31 | NUR ---
HOSPITALIST AT BS. VO: . SPECIMEN WILL BE SENT.
[2019-09-22] MEDS ORDERED: ONDANSETRON ODT 4 MG PO PRN (16:00)
[2019-09-22] MEDS ORDERED: ONDANSETRON 2MG/ML, 2ML IVPush PRN (16:00)
[2019-09-22] MEDS ORDERED: SIMETHICONE 125 MG CHEW TAB PO PRN (16:00)
[2019-09-22] MEDS ORDERED: ACETAMINOPHEN 325 MG TABLET PO PRN (16:00)
[2019-09-22] MEDS ORDERED: ALBUTEROL HFA 90 MCG/SPRAY INH PRN (16:00)
[2019-09-22] MEDS ORDERED: LABETALOL 5MG/ML, 20ML IVPush PRN (16:00)
[2019-09-22] MEDS ORDERED: hydrALAzine 20 MG/ML, 1ML IVPush PRN (16:00)
[2019-09-22] MEDS ORDERED: HEPARIN 5,000 UNITS/ML, 1ML ONE (17:09)
[2019-09-22] MEDS ORDERED: FUROSEMIDE 40 MG/4 ML ONE (17:09)
--- NOTE | 2019-09-22 17:17 | NUR ---
PT REPORT TO YEYO TUCKER FOR ROOM 474
[2019-09-22] MEDS: HEPARIN 5,000 UNITS/ML, 1ML SQ SCH (17:23)
[2019-09-22] MEDS: FUROSEMIDE 40 MG/4 ML IV SCH (17:28)
--- NOTE | 2019-09-22 17:28 | NUR ---
APRESOLINE, HEPARIN AND LASIX GIVEN PER EMAR. URINAL PROVIDED TO PT.
[2019-09-22 17:45] VITALS: BP 169/89
[2019-09-22 17:54] LABS: MICROSCOPIC AUTO
[2019-09-22 17:56] VITALS: BP 169/89
[2019-09-22] MEDS: METOPROLOL TARTRATE 25 MG TAB PO SCH (18:37)
[2019-09-22 19:42] VITALS: BP 168/81
[2019-09-22] MEDS ORDERED: ICN URSODIOL 20 MG/ML ORAL PO SCH (21:00)
[2019-09-22] MEDS ORDERED: TACROLIMUS 1 MG CAPSULE PO SCH (21:00)
[2019-09-22] MEDS: URSODIOL 300 MG CAPSULE PO SCH (21:22)
[2019-09-23 02:07] VITALS: BP 164/69
[2019-09-23] MEDS: HEPARIN 5,000 UNITS/ML, 1ML SQ SCH ×2 (02:09→08:26)
[2019-09-23] MEDS: METOPROLOL TARTRATE 25 MG TAB PO SCH (05:39)
[2019-09-23] MEDS ORDERED: PANTOPRAZOLE 40MG TABLET PO SCH (06:00)
[2019-09-23 06:40] LABS: BASOPHILS # (AUTO) 0.03 x10^3/uL (0-0.1); BASOPHILS % (AUTO) 1 % (0-1); EOSINOPHILS # (AUTO) 0.13 x10^3/uL (0-0.4); EOSINOPHILS % (AUTO) 4 % (1-7); LYMPHOCYTES # (AUTO) 0.48 x10^3/uL (1-3.4); LYMPHOCYTES % (AUTO) 16 % (22-44); MD NO; MEAN CORPUSCULAR HEMOGLOBIN 29.4 pg (27.5-34.5); MEAN CORPUSCULAR HGB CONC 32.9 g/dL (33.2-36.2); MEAN CORPUSCULAR VOLUME 89.2 fL (81-97); MEAN PLATELET VOLUME 10.1 fL (7.4-10.4); MONOCYTES # (AUTO) 0.43 x10^3/uL (0.2-0.8); MONOCYTES % (AUTO) 15 % (2-9); NEUTROPHILS # (AUTO) 1.92 x10^3/uL (1.8-6.8); NEUTROPHILS % (AUTO) 64 % (42-75); PLATELET COUNT 116 x10^3/uL (130-400); RED BLOOD COUNT 3.12 x10^6/uL (4.38-5.82)
[2019-09-23 07:00] LABS: CHLORIDE 115 mmol/L (98-107)
[2019-09-23 07:08] LABS: ANION GAP 9 mmol/L (5-15); CALCIUM 8.3 mg/dL (8.5-10.1); CREATININE 1.63 mg/dL (0.7-1.3)
[2019-09-23] MEDS ORDERED: CEFTRIAXONE PMX 1GM/50ML 50 ML IV SCH (08:00)
[2019-09-23 08:08] VITALS: BP 153/88
[2019-09-23] MEDS: URSODIOL 300 MG CAPSULE PO SCH (08:24)
[2019-09-23] MEDS: FUROSEMIDE 40 MG/4 ML IV SCH (08:25)
[2019-09-23] MEDS ORDERED: ASCORBIC ACID 500 MG TABLET PO SCH (09:00)
[2019-09-23] MEDS ORDERED: TACROLIMUS 1 MG CAPSULE PO SCH (09:00)
[2019-09-23] MEDS ORDERED: FERROUS SULFATE 325 MG TABLET PO SCH (09:00)
[2019-09-23] MEDS ORDERED: CHOLECALCIFEROL 400 UNITS TABLET PO SCH (10:00)
[2019-09-23 10:58] VITALS: BP 172/82
[2019-09-23] MEDS ORDERED: CEFD300C37 PO (11:16)
[2019-09-23] MEDS ORDERED: FURO20TA3 PO (11:16)
[2019-09-23] MEDS ORDERED: HYDR-3343 PO (11:16)
[2019-09-23 12:48] VITALS: BP 172/92
[2019-09-24] MEDS ORDERED: ASPIRIN 81 MG TABLET EC PO SCH (09:00)
== END 2019-09-23 12:59 | disposition home or self-care (01) | DRG 690 ==
LOC: ED 13:17 → EDIP 13:18 → ED 13:39 → 4NE 17:34 → DCLOUNGE 09-23 12:53
PROVIDERS: ADMIT Hospitalist; ATTEND Hospitalist
DX: N39.0 Urinary tract infection, site not specified (principal); J90 Pleural effusion, not elsewhere classified; Z94.0 Kidney transplant status; Z94.4 Liver transplant status; E87.2 Acidosis; J81.1 Chronic pulmonary edema; E87.70 Fluid overload, unspecified; I12.9 Hypertensive chronic kidney disease with stage 1 through stage 4 chronic kidney disease, or unspecified chronic kidney disease; I48.91 Unspecified atrial fibrillation; J45.909 Unspecified asthma, uncomplicated; N18.3 Chronic kidney disease, stage 3 (moderate); D64.89 Other specified anemias; D47.3 Essential (hemorrhagic) thrombocythemia; M19.90 Unspecified osteoarthritis, unspecified site; Z88.2 Allergy status to sulfonamides; Z88.8 Allergy status to other drugs, medicaments and biological substances; Z79.899 Other long term (current) drug therapy
CPT/HCPCS: 36415; 74022; 76700; 80048; 80053; 81001; 83735; 83880; 84100; 85025; 87086; G0378; J0696; J1644; J1940; J7507; J7517

== ENCOUNTER 2020-04-20 05:31 | Emergency (ER) | payer MEDICARE ==
[~2020-04-20] VITALS: Ht 177.8 cm; Wt 68.9 kg
[~2020-04-20 05:31] MED LIST changes: +ASCO100018 PO; -ASCO10004 PO; -ASPI-515 PO; +ASPI-963 PO; +CEFD300C37 PO; +FURO20TA3 PO; +MYCO250C4 PO; -PANT40TA5 PO; +PANT40TA6 PO; +URSO300C27 PO
[2020-04-20 05:36] VITALS: BP 177/82
[2020-04-20] MEDS ORDERED: OXYcodone/APAP 5/325MG TABLET PO ONE (06:00)
[2020-04-20] MEDS ORDERED: OXYcodone/APAP 5/325MG TABLET ONE (06:01)
--- NOTE | 2020-04-20 06:51 | NUR ---
report to stefany mosher
[2020-04-20] MEDS ORDERED: LIDOCAINE-MPF 1%, 5ML ONE (07:09)
== END 2020-04-20 07:34 | disposition home or self-care (01) ==
LOC: ED 06:12
DX: M19.032 Primary osteoarthritis, left wrist (principal); I10 Essential (primary) hypertension; J45.909 Unspecified asthma, uncomplicated; I48.91 Unspecified atrial fibrillation; Z88.2 Allergy status to sulfonamides; Z88.8 Allergy status to other drugs, medicaments and biological substances
CPT/HCPCS: 29125; 99283

== ENCOUNTER 2020-05-05 12:19 | Emergency (ER) | payer MEDICARE ==
[~2020-05-05] VITALS: Ht 177.8 cm; Wt 66.9 kg
[2020-05-05] MEDS ORDERED: SODIUM CHLORIDE FLUSH 10ML SYR IVF ONE (14:30)
[2020-05-05] MEDS ORDERED: MORPHINE SULFATE 4 MG/ML, 1ML IVPush PRN (14:30)
[2020-05-05] MEDS ORDERED: ONDANSETRON 2MG/ML, 2ML IVPush ONE (14:30)
[2020-05-05] MEDS ORDERED: ONDANSETRON ODT 8 MG ONE (14:47)
[2020-05-05] MEDS ORDERED: MORPHINE SULFATE 4 MG/ML, 1ML ONE (14:48)
--- NOTE | 2020-05-05 14:52 | NUR ---
RETURNS FROM XR
--- NOTE | 2020-05-05 15:51 | NUR ---
patient refused air stirrup and walker at this time
--- NOTE | 2020-05-05 16:14 | NUR ---
US AT BEDSIDE
[2020-05-05 16:42] VITALS: BP 188/88
== END 2020-05-05 17:25 | disposition home or self-care (01) ==
LOC: ED 17:15
DX: S93.401A Sprain of unspecified ligament of right ankle, initial encounter (principal); S83.91XA Sprain of unspecified site of right knee, initial encounter; M71.121 Other infective bursitis, right elbow; I48.91 Unspecified atrial fibrillation; I10 Essential (primary) hypertension; M79.89 Other specified soft tissue disorders; X50.1XXA Overexertion from prolonged static or awkward postures, initial encounter; Y93.89 Activity, other specified; Y92.89 Other specified places as the place of occurrence of the external cause; Y99.8 Other external cause status
CPT/HCPCS: 73080; 73564; 73610; 73630; 93971; 96374; 96375; 99284; J2270; J2405

== ENCOUNTER 2020-07-24 09:25 | Inpatient (IN) | payer MEDICARE ==
[~2020-07-24] VITALS: Ht 177.8 cm; Wt 66.9 kg
[~2020-07-24 09:25] MED LIST changes: -DOCU-180 PO; +DOCU-192 PO; +DOXA2TAB9 PO; +LISI-170 PO; +PRED5TAB PO
--- NOTE | 2020-07-24 09:56 | NUR ---
PT HAS CO GI N/V/D SINCE DC FROM HOSPITAL ON SUNDAY. PT HAS INCREASED WEAKNESS AND DOAN. PT WAS ADMITTED FOR FLUID OVERLOAD. DENIES CP OR SOB. [facility]
--- NOTE | 2020-07-24 10:00 | NUR ---
PT AMUBLATED TO BATHROOM. ASSISTED BY FAMILY.
[2020-07-24] MEDS ORDERED: SODIUM CHLORIDE FLUSH 10ML SYR IVF ONE (10:30)
[2020-07-24] MEDS ORDERED: SODIUM CHLORIDE 0.9% 1,000ML IVBOLUS ONE (10:30)
[2020-07-24] MEDS ORDERED: ONDANSETRON 2MG/ML, 2ML IVPush ONE (10:30)
--- NOTE | 2020-07-24 10:30 | NUR ---
PT BACK FROM IMAGING
[2020-07-24 10:50] LABS: BASOPHILS % (AUTO) 0 % (0-1); EOSINOPHILS % (AUTO) 2 % (1-7); LYMPHOCYTES % (AUTO) 12 % (22-44); MEAN CORPUSCULAR HEMOGLOBIN 29.5 pg (27.5-34.5); MEAN CORPUSCULAR HGB CONC 33.1 g/dL (33.2-36.2); MEAN PLATELET VOLUME 8.7 fL (7.4-10.4); MONOCYTES % (AUTO) 8 % (2-9); NEUTROPHILS % (AUTO) 78 % (42-75); PLATELET COUNT 174 x10^3/uL (130-400); RED BLOOD COUNT 3.92 x10^6/uL (4.38-5.82)
[2020-07-24 10:59] LABS: ALANINE AMINOTRANSFERASE 21 U/L (12-78); ALBUMIN 2.8 g/dL (3.4-5.0); ANION GAP 8 mmol/L (5-15); CALCIUM 8.4 mg/dL (8.5-10.1); CHLORIDE 119 mmol/L (98-107); CREATININE 3.09 mg/dL (0.7-1.3)
[2020-07-24] MEDS ORDERED: ALBUMIN HUMAN 25% 100 ML IV ONE (11:00)
[2020-07-24 11:03] LABS: ALKALINE PHOSPHATASE 176 U/L (45-117); BILIRUBIN,TOTAL 0.4 mg/dL (0.2-1.0); TOTAL PROTEIN 6.2 g/dL (6.4-8.2)
[2020-07-24] MEDS ORDERED: ONDANSETRON 2MG/ML, 2ML ONE (11:09)
[2020-07-24 11:16] LABS: CLOSTRIDIUM DIFFICILE ANTIGEN NEGATIVE; CLOSTRIDIUM DIFFICILE TOXIN NEGATIVE (Negative); CRYPTOSPORIDIUM ANTIGEN Negative (Negative)
--- NOTE | 2020-07-24 11:18 | NUR ---
MEDICATED PER ORDERS. PT USING BSC W FAMILY ASSISTING. CO NAUSEA, GIVEN ZOFRAN
[2020-07-24] MEDS ORDERED: ACETAMINOPHEN 500 MG TABLET ONE (11:28)
[2020-07-24] MEDS ORDERED: COLCHICINE 0.6 MG CAPSULE PO SCH (11:30)
[2020-07-24] MEDS ORDERED: ACETAMINOPHEN 500 MG TABLET PO ONE (12:30)
--- NOTE | 2020-07-24 13:29 | NUR ---
PT RESTING, SEEN BY [facility]. POC FOR ADMIT. VSS.
[2020-07-24] MEDS ORDERED: SENNA/DOCUSATE TABLET PO PRN (13:30)
[2020-07-24] MEDS ORDERED: ONDANSETRON 2MG/ML, 2ML IVPush PRN (13:30)
[2020-07-24] MEDS ORDERED: POLYETHYLENE GLYCOL 17 GM PACKET PO PRN (13:30)
[2020-07-24] MEDS ORDERED: ONDANSETRON ODT 4 MG PO PRN (13:30)
[2020-07-24] MEDS ORDERED: POTASSIUM CHLORIDE 20 MEQ in SODIUM CHLORIDE 0.45% 1,000 ML IV SCH (13:30)
[2020-07-24] MEDS ORDERED: ALBUTEROL HFA 90 MCG/SPRAY INH PRN (13:30)
[2020-07-24] MEDS ORDERED: ACETAMINOPHEN 500 MG TABLET PO PRN (14:00)
--- NOTE | 2020-07-24 14:02 | NUR ---
REPORT TO VARGHESE
--- NOTE | 2020-07-24 14:03 | NUR ---
REPORT TO VARGHESE
[2020-07-24 14:44] VITALS: BP 118/61
[2020-07-24] MEDS: FAMOTIDINE 20 MG/2 ML IVPush SCH (15:44)
[2020-07-24] MEDS: HEPARIN 5,000 UNITS/ML, 1ML SQ SCH ×2 (15:45→23:56)
[2020-07-24] MEDS: SODIUM BICARBONATE 8.4% 150 MEQ in DEXTROSE 5% 1,000 ML IV SCH (16:22)
[2020-07-24] MEDS ORDERED: HYDR-3343 PO (18:06)
[2020-07-24 19:01] LABS: MICROSCOPIC INDICATED
[2020-07-24 19:30] VITALS: BP 155/80
[2020-07-24] MEDS: URSODIOL 300 MG CAPSULE PO SCH (21:00)
[2020-07-25] MEDS ORDERED: ALBUTEROL SULFATE 2.5 MG/3 ML NPPB PRN (01:00)
[2020-07-25 02:53] VITALS: BP 161/85
[2020-07-25 07:21] VITALS: BP 142/72
[2020-07-25] MEDS: FAMOTIDINE 20 MG/2 ML IVPush SCH (08:26)
[2020-07-25] MEDS: HEPARIN 5,000 UNITS/ML, 1ML SQ SCH ×2 (08:27→16:15)
[2020-07-25] MEDS: URSODIOL 300 MG CAPSULE PO SCH ×2 (08:27→20:46)
[2020-07-25] MEDS: TACROLIMUS 1 MG CAPSULE PO SCH (08:28)
[2020-07-25] MEDS: SODIUM BICARBONATE 8.4% 150 MEQ in DEXTROSE 5% 1,000 ML IV SCH ×2 (08:28→11:45)
[2020-07-25 08:52] LABS: BASOPHILS % (AUTO) 1 % (0-1); EOSINOPHILS % (AUTO) 4 % (1-7); LYMPHOCYTES % (AUTO) 20 % (22-44); MEAN CORPUSCULAR HEMOGLOBIN 29.2 pg (27.5-34.5); MEAN CORPUSCULAR HGB CONC 33.5 g/dL (33.2-36.2); MEAN PLATELET VOLUME 9.1 fL (7.4-10.4); MONOCYTES % (AUTO) 10 % (2-9); NEUTROPHILS % (AUTO) 66 % (42-75); PLATELET COUNT 133 x10^3/uL (130-400)
[2020-07-25 08:53] LABS: ALBUMIN 2.6 g/dL (3.4-5.0); ANION GAP 11 mmol/L (5-15); CALCIUM 8.1 mg/dL (8.5-10.1); CHLORIDE 118 mmol/L (98-107); CREATININE 3.07 mg/dL (0.7-1.3)
[2020-07-25 13:38] VITALS: BP 143/72
[2020-07-25] MEDS ORDERED: LOPERAMIDE 2 MG CAPSULE PO PRN (15:30)
[2020-07-25 19:08] VITALS: BP 141/80
[2020-07-26] MEDS: HEPARIN 5,000 UNITS/ML, 1ML SQ SCH ×3 (00:12→16:14)
[2020-07-26 01:18] VITALS: BP 149/78
[2020-07-26 06:08] LABS: BASOPHILS % (AUTO) 1 % (0-1); EOSINOPHILS % (AUTO) 3 % (1-7); LYMPHOCYTES % (AUTO) 23 % (22-44); MEAN CORPUSCULAR HEMOGLOBIN 29.5 pg (27.5-34.5); MEAN CORPUSCULAR HGB CONC 34.2 g/dL (33.2-36.2); MEAN PLATELET VOLUME 8.8 fL (7.4-10.4); MONOCYTES % (AUTO) 10 % (2-9); NEUTROPHILS % (AUTO) 63 % (42-75); PLATELET COUNT 128 x10^3/uL (130-400); RED BLOOD COUNT 3.27 x10^6/uL (4.38-5.82); RED CELL DISTRIBUTION WIDTH 14.4 % (9.4-14.8)
[2020-07-26 06:17] LABS: ALBUMIN 2.6 g/dL (3.4-5.0); ANION GAP 8 mmol/L (5-15); CALCIUM 7.6 mg/dL (8.5-10.1); CHLORIDE 112 mmol/L (98-107)
[2020-07-26 06:19] LABS: CREATININE 2.48 mg/dL (0.7-1.3)
[2020-07-26 06:50] VITALS: BP 161/85
[2020-07-26] MEDS: TACROLIMUS 1 MG CAPSULE PO SCH (09:12)
[2020-07-26] MEDS: URSODIOL 300 MG CAPSULE PO SCH ×2 (09:13→20:32)
[2020-07-26] MEDS: FAMOTIDINE 20 MG/2 ML IVPush SCH (09:13)
[2020-07-26] MEDS: SODIUM BICARBONATE 8.4% 150 MEQ in DEXTROSE 5% 1,000 ML IV SCH (10:09)
[2020-07-26 12:57] VITALS: BP 165/81
[2020-07-26 19:19] VITALS: BP 145/77
[2020-07-27 00:03] VITALS: BP 149/80
[2020-07-27] MEDS: HEPARIN 5,000 UNITS/ML, 1ML SQ SCH ×2 (00:20→08:27)
[2020-07-27 05:59] LABS: BASOPHILS % (AUTO) 1 % (0-1); EOSINOPHILS % (AUTO) 2 % (1-7); LYMPHOCYTES % (AUTO) 25 % (22-44); MEAN CORPUSCULAR HEMOGLOBIN 29.6 pg (27.5-34.5); MEAN CORPUSCULAR HGB CONC 34.7 g/dL (33.2-36.2); MEAN PLATELET VOLUME 9.3 fL (7.4-10.4); MONOCYTES % (AUTO) 11 % (2-9); NEUTROPHILS % (AUTO) 62 % (42-75); PLATELET COUNT 122 x10^3/uL (130-400); RED BLOOD COUNT 3.12 x10^6/uL (4.38-5.82); RED CELL DISTRIBUTION WIDTH 14.4 % (9.4-14.8)
[2020-07-27 06:04] LABS: ALBUMIN 2.4 g/dL (3.4-5.0); ANION GAP 4 mmol/L (5-15); CALCIUM 7.3 mg/dL (8.5-10.1); CHLORIDE 111 mmol/L (98-107); CREATININE 2.17 mg/dL (0.7-1.3)
[2020-07-27 07:29] VITALS: BP 149/81
[2020-07-27] MEDS: SODIUM BICARBONATE 8.4% 150 MEQ in DEXTROSE 5% 1,000 ML IV SCH (07:41)
[2020-07-27] MEDS: FAMOTIDINE 20 MG/2 ML IVPush SCH (08:27)
[2020-07-27] MEDS: URSODIOL 300 MG CAPSULE PO SCH (08:27)
[2020-07-27] MEDS: TACROLIMUS 1 MG CAPSULE PO SCH (08:27)
[2020-07-27] MEDS ORDERED: PRED10TA PO (11:43)
[2020-07-27 12:09] VITALS: BP 147/85
== END 2020-07-27 13:01 | disposition home or self-care (01) | DRG 699 ==
LOC: ED 09:51 → EDIP 12:05 → 4EST 15:11 → DCLOUNGE 07-27 12:50
PROVIDERS: ADMIT Family Medicine; ATTEND Family Medicine
DX: T86.19 Other complication of kidney transplant (principal); E87.2 Acidosis; Z94.4 Liver transplant status; N17.9 Acute kidney failure, unspecified; I13.0 Hypertensive heart and chronic kidney disease with heart failure and stage 1 through stage 4 chronic kidney disease, or unspecified chronic kidney disease; I50.30 Unspecified diastolic (congestive) heart failure; K52.9 Noninfective gastroenteritis and colitis, unspecified; D63.1 Anemia in chronic kidney disease; E86.0 Dehydration; E86.1 Hypovolemia; E88.09 Other disorders of plasma-protein metabolism, not elsewhere classified; I48.91 Unspecified atrial fibrillation; Y83.8 Other surgical procedures as the cause of abnormal reaction of the patient, or of later complication, without mention of misadventure at the time of the procedure; J45.909 Unspecified asthma, uncomplicated; K55.20 Angiodysplasia of colon without hemorrhage; Z79.899 Other long term (current) drug therapy; Z85.828 Personal history of other malignant neoplasm of skin; Z87.441 Personal history of nephrotic syndrome; Z88.2 Allergy status to sulfonamides; Z88.8 Allergy status to other drugs, medicaments and biological substances; Z98.49 Cataract extraction status, unspecified eye; Y92.89 Other specified places as the place of occurrence of the external cause; N18.30 Chronic kidney disease, stage 3 unspecified
CPT/HCPCS: 36415; 74021; 76700; 80053; 80069; 80197; 81001; 82570; 83735; 83880; 84156; 84550; 85025; 87046; 87086; 87252; 87324; 87328; 87329; 87427; 87497; 93005; 96361; 96374; 99285; G0378; J1644; J2405; J7070; J7507; P9047; J7030; J7512